=== PATIENT | female | born 1995 | race Caucasian/White ===

== ENCOUNTER 2025-04-17 08:58 | Emergency (ER) | payer MEDICAID | END 2025-04-17 09:42 | disposition home or self-care (01) | LOC: FB.ED 08:58 | DX: L76.22 Postprocedural hemorrhage of skin and subcutaneous tissue following other procedure (principal); Z88.5 Allergy status to narcotic agent; Z87.19 Personal history of other diseases of the digestive system | CPT/HCPCS: 99283 ==